=== PATIENT | male | born 1975 | race Two or more races ===

== ENCOUNTER 2016-04-02 06:09 | Emergency (ER) | payer SELFPAY | END 2016-04-02 07:35 | disposition home or self-care (01) | LOC: D.ER 06:09 | DX: M25.562 Pain in left knee (principal) ==

== ENCOUNTER 2016-04-07 05:19 | Emergency (ER) | payer SELFPAY | END 2016-04-07 06:05 | disposition home or self-care (01) | LOC: D.ER 05:19 | DX: M25.562 Pain in left knee (principal) ==

== ENCOUNTER 2016-04-21 13:58 | Emergency (ER) | payer SELFPAY | END 2016-04-21 15:45 | disposition home or self-care (01) | LOC: D.ER 13:58 | DX: M25.562 Pain in left knee (principal) ==

== ENCOUNTER 2016-05-28 05:01 | Emergency (ER) | payer SELFPAY | END 2016-05-28 06:13 | disposition home or self-care (01) | LOC: D.ER 05:01 | DX: M25.562 Pain in left knee (principal) ==

== ENCOUNTER 2016-06-11 06:49 | Emergency (ER) | payer SELFPAY | END 2016-06-11 08:13 | disposition home or self-care (01) | LOC: D.ER 06:49 | DX: M54.9 Dorsalgia, unspecified (principal); V43.52XA Car driver injured in collision with other type car in traffic accident, initial encounter; Y93.89 Activity, other specified; Y92.410 Unspecified street and highway as the place of occurrence of the external cause ==

== ENCOUNTER 2016-07-07 18:07 | Emergency (ER) | payer SELFPAY | END 2016-07-07 21:05 | disposition home or self-care (01) | LOC: D.ER 18:07 | DX: S80.02XA Contusion of left knee, initial encounter (principal); W22.8XXA Striking against or struck by other objects, initial encounter; Y93.89 Activity, other specified; Y92.89 Other specified places as the place of occurrence of the external cause ==

== ENCOUNTER 2016-09-07 04:14 | Emergency (ER) | payer SELFPAY | END 2016-09-07 04:50 | disposition home or self-care (01) | LOC: D.ER 04:14 | DX: M25.562 Pain in left knee (principal); Z48.02 Encounter for removal of sutures ==

== ENCOUNTER 2017-06-17 08:35 | Emergency (ER) | payer SELFPAY | END 2017-06-17 09:27 | disposition home or self-care (01) | LOC: D.ER 08:35 | DX: S80.02XA Contusion of left knee, initial encounter (principal); W19.XXXA Unspecified fall, initial encounter; Y93.89 Activity, other specified; Y92.019 Unspecified place in single-family (private) house as the place of occurrence of the external cause; F17.200 Nicotine dependence, unspecified, uncomplicated; M25.562 Pain in left knee ==

== ENCOUNTER 2017-07-05 20:22 | Emergency (ER) | payer SELFPAY | END 2017-07-05 22:05 | disposition home or self-care (01) | LOC: D.ER 20:22 | DX: M76.9 Unspecified enthesopathy, lower limb, excluding foot (principal); M25.562 Pain in left knee ==

== ENCOUNTER 2017-10-13 02:14 | Emergency (ER) | payer SELFPAY ==
[~2017-10-13] VITALS: Ht 182.9 cm; Wt 113.2 kg
[2017-10-13 02:17] VITALS: Ht 182.9 cm; Wt 113.2 kg
[2017-10-13] MEDS ORDERED: NAPROSYN500 MG PO (03:43)
[2017-10-13] MEDS ORDERED: NORCO 7.5/325 T1 TA1 PO (03:43)
[2017-10-13 03:54] VITALS: BP 132/79
== END 2017-10-13 03:54 | disposition home or self-care (01) ==
LOC: D.ER 02:14
DX: M25.562 Pain in left knee (principal); M54.5 Low back pain

== ENCOUNTER 2018-08-07 09:01 | Day surgery (SDC) | payer SELFPAY ==
[~2018-08-07] VITALS: Ht 182.9 cm; Wt 117.0 kg
[~2018-08-07 09:01] MED LIST: NAPROSYN500 MG PO; NORCO 7.5/325 T1 TA1 PO
[2018-08-07 10:09] VITALS: BP 140/113; Ht 182.9 cm; Wt 117.0 kg
[2018-08-07] MEDS ORDERED: DURICEF500 MG PO (12:55)
[2018-08-07] MEDS ORDERED: PERCOCET 10-321 EAC1 PO (12:55)
[2018-08-07] MEDS ORDERED: VISTARIL50 MG PO (13:08)
--- NOTE | 2018-08-08 06:39 | OP ---
PATIENT NAME: CRISTY PENNINGTON MEDICAL RECORD: [id number] :73 LOCATION:[facility] ADMISSION DATE: SURGEON: RENATO CASTAÑEDA DO DATE OF OPERATION: 08/07/2018 PROCEDURE PERFORMED: Right lateral epicondylectomy with extensor tendon repair at epicondyle. PREOPERATIVE DIAGNOSIS: Right lateral epicondylitis. POSTOPERATIVE DIAGNOSIS: Right lateral epicondylitis. 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 He has tried all manner of nonoperative treatment including bracing, using a tennis elbow brace and injections that have not worked. He is tired of dealing with the pain and wanted something done surgically. He is a self-pay patient as he does not have insurance. I have informed him of the hager and he said he still wanted to have the surgery. SURGEON: Renato Castañeda DO DESCRIPTION OF PROCEDURE: The patient was taken to the operative suite, laid in the supine position, given 2 grams of Ancef preoperatively. The right upper extremity was prepped and draped in sterile fashion. Time-out was performed, everyone was in agreement with the correct side, site, patient and procedure. The incision began over the lateral epicondyle of the right elbow with the arm, elbow flexed and hand pronated. Skin dissection was made down with 15 blade scalpel down to the lateral epicondyle moving the extensor carpi radialis longus tendon going through it and exposing the lateral epicondyle and the extensor carpi radialis brevis. Once brevis was exposed, the torn tendon was seen. This was debrided of all tendon that had been torn and then a 2.9 JuggerKnot was placed in the lateral epicondyle after a rongeur was used to rongeur off the cortex. The 2.9 JuggerKnot first was punched and then entered and then 4 sutures were brought out. Repair was done on the extensor carpi radialis brevis tendon down to the anchor with horizontal mattress stitch going through both the sides of the ECRB. The other 2 strands were used to close the ECRL as well and then 0 Vicryl was used to run along the ECRL to close it and then a 3-0 Vicryl in a [id number] type stitch of the soft tissue over those closing the fascia. The skin was then closed with 3-0 Vicryl in an inverted interrupted fashion with 5-0 Monocryl ran on the skin and 0.25% Marcaine with epinephrine was then injected into the incision site and was covered with Steri-Strips, Adaptic, 4 x 4's, and a Kerlix and then an Riley wrap was used wrapped clear from the hand up to above the elbow and then placing a cock-up wrist splint. He was awakened and taken to recovery in stable condition. BLOOD LOSS: Minimal. COMPLICATIONS: None. The tourniquet was inflated with the right upper extremity exsanguinated. The tourniquet was inflated to 250 mmHg and was up for 26 minutes. It was let down at the end of the procedure. Any bleeding was coagulated with Bovie. TRANSINT:[id number] Voice Confirmation ID: [id number] DOCUMENT ID: [id number] OPERATIVE REPORT [id number] CRISTY PENNINGTON MICHAEL D, DO at 0639 CC: [id number] DICTATION DATE: 08/07/18 1251 IT COMMUNICATIONS SPECIALIST: 08/07/18 1422 [facility] 08/07/18 [facility] [address] [place] [address]
== END 2018-08-07 15:13 | disposition home or self-care (01) ==
LOC: D.OPS 09:01 → D.PAN 14:00 → D.OPS 14:00
PROVIDERS: ATTEND Orthopaedic Surgery
DX: M77.11 Lateral epicondylitis, right elbow (principal); Z01.812 Encounter for preprocedural laboratory examination